=== PATIENT | male | born 2000 | race Caucasian/White ===

== ENCOUNTER 2023-07-17 12:31 | Inpatient (IN) ==
[2023-07-17] MEDS ORDERED: HYDROmorphone INJ 0.5 MG/0.5 ML SYR IV PRN (13:17)
[2023-07-17] MEDS: ONDANSETRON INJ 2 MG/ML 2 ML VIAL IV STA (13:19)
[2023-07-17] MEDS: KETOROLAC TROMETHAMINE 15 MG/ML VIAL IV STA (13:19)
[2023-07-17] MEDS: SODIUM CHLORIDE 0.9% 1,000 ML IV ONE (13:19)
--- NOTE | 2023-07-17 13:20 | Emergency Department Note ---
Impression & Plan Renal colic, Hydronephrosis, Vomiting, GONZALES (acute kidney injury) ED Provider Note NAME: ENIO JHA AGE: 23 SEX: M : 2000 ARRIVES VIA: Walk-In INFORMANT: [Patient][family] ED PROVIDER(S): [Saad Ball MD] CHIEF COMPLAINT: Kidney stone HISTORY OF PRESENT ILLNESS: The patient is a 23-year-old male who has had a week of symptoms. He was diagnosed with a right ureteral stone 4 mm in size about a week or so ago. He was at an outside hospital. The patient is using Flomax, oxycodone, hydration and a urine strainer. He has had pain persisting and now it is more so in the right groin. The pain was uncontrollable today despite his oral narcotic. He vomited a few times. He presents for evaluation. There has been no fever. He has not had cough or cold or congestion. He has had multiple stones in the past. He does not want any type of intervention if at all possible as he does poorly with stenting. PMHx/PSHx/Social Hx: See Below PHYSICAL EXAM: GENERAL: Patient is in no acute distress. HEENT: No acute trauma, normocephalic atraumatic, mucous membranes moist, no nasal congestion. NECK: No stridor, no adenopathy, no meningismus, trachea is midline. LUNGS: Clear to auscultation bilaterally, no wheeze, no rhonchi, breath sounds equal. HEART: Without murmurs gallops or rubs, regular rate and rhythm. ABDOMEN: Soft, nontender, no peritonitis. EXTREMITIES: No cyanosis, full range of motion of all the joints without pain or difficulty. NEUROLOGIC: Oriented x 3, no acute motor or sensory deficits, no focal weakness. SKIN: No jaundice, no diaphoresis. DIFFERENTIAL DIAGNOSIS: Renal colic, hydronephrosis, UTI, renal failure, failed outpatient management, electrolyte disturbance, among others. EMERGENCY DEPARTMENT PROCEDURES: MEDICAL DECISION MAKING: There is a mild leukocytosis, this could be consistent with infection or just his pain. There is a normal hemoglobin and platelet count. There is evidence for some mild acute kidney injury with a creatinine of 1.48. No electrolyte abnormality in need of emergent correction. No concerning liver enzyme elevation. No evidence for pancreatitis. Urinalysis shows some ketones and blood, no infection. KUB did not show any obvious right ureteral stone. Renal ultrasound shows hydronephrosis on the right and a stone at the right UV junction. The patient was uncomfortable. He had been vomiting earlier. He has been dealing with his stone for the last week outpatient. Patient was given IV saline, 1 L. He was given IV Zofran, IV Toradol, IV Dilaudid. He received oral Flomax. Patient does not feel safe with discharge home. With his vomiting, with his failed outpatient management, with his acute kidney injury, hospitalization is warranted. I spoke with the patient and case management, I spoke with his family, the on- call hospitalist was consulted. Prior/Outside records/notes reviewed: Outside laboratory results and CT imaging from his outside hospital. Imaging/x-ray results per my interpretation: KUB does not show any obvious ureteral stone on the right. Chronic Medical/Social conditions affecting care: College student. Care/Management discussed with: Case management, the on-call hospitalist. Level of care consideration(s): After review of the information above and other included data: --I believe the patient requires escalation of care to admission DISPOSITION: Admission Past Med/Surg History Medical History Renal colic Social History Smoking Status: Current every day smoker Feels Safe at Home: Yes Allergies Allergies Allergy/AdvReac Type Severity Reaction Status Date / Time No Known Allergies Allergy Verified 07/17/23 15:33 Home Meds Home Medications Medication Instructions Recorded Confirmed bupropion HCl 100 mg tablet,12 hr 100 mg PO DAILY 07/17/23 07/17/23 sustained-release mirtazapine 7.5 mg tablet 7.5 mg PO HS 07/17/23 07/17/23 oxycodone 5 mg tablet 5 mg PO Q6H PRN Pain 07/17/23 07/17/23 tamsulosin 0.4 mg capsule 0.4 mg PO DAILY 07/17/23 07/17/23 Results & Data (ED) Vital Signs Vital Signs - 24 hr 07/17/23 12:36 07/17/23 15:01 Temperature 37.4 C Temperature Source Temporal Artery Scan Pulse Rate 66 Pulse Rate [Right Finger] 63 Respiratory Rate 18 16 Respiratory Effort / Characteristics Non-Labored Non-Labored Spontaneous Respiratory Depth Normal Normal Respiratory Pattern Regular Blood Pressure 128/73 Blood Pressure [Right Arm] 148/66 H Blood Pressure Mean 91 Blood Pressure Mean [Right Arm] 93 Blood Pressure Position [Right Arm] Lying Pulse Oximetry 94 95 Oxygen Delivery Method Room Air Room Air Sepsis Recent Fever Within 48 Hours No Sepsis New/Unexplained Change in Mental Status No Sepsis Action Taken by Nursing No Action Required Home Medications Current Medication List: was personally reviewed by me Laboratory Data Attestation: I reviewed the patient's lab results. 07/17/23 13:13 07/17/23 13:13 Lab Results 07/17/23 07/17/23 Range/Units 13:13 13:45 WBC 11.40 H (4.8-10.8) K/ul RBC 4.80 (4.70-6.10) M/uL Hgb 14.3 (14.0-18.0) g/dl Hct 41.4 L (42.0-52.0) % MCV 86.3 (80.0-100.0) fL MCH 29.8 (25.0-34.0) pg MCHC 34.5 (32.0-36.0) g/dL RDW Std Deviation 37.7 (36.4-46.3) fL RDW Coeff of Pete 11.9 (11.5-14.5) % Plt Count 350 (130-400) K/uL MPV 10.2 (9.4-12.4) fL Immature Gran % (Auto) 0.3 % Neut % (Auto) 82.6 % Lymph % (Auto) 8.0 % L[place] % (Auto) 7.1 % Eos % (Auto) 1.6 % Baso % (Auto) 0.4 % Neut # (Auto) 9.42 H (1.40-6.50) K/uL Lymph # (Auto) 0.91 L (1.20-3.40) K/uL Loving # (Auto) 0.81 H (0.11-0.59) K/uL Eos # (Auto) 0.18 (0.00-0.50) K/uL Baso # (Auto) 0.05 (0.00-0.20) K/uL Immature Gran # (Auto) 0.03 (0.01-0.20) K/uL Sodium 136 (136-145) mmol/L Potassium 4.2 (3.5-5.1) mmol/L Chloride 103 (98-107) mmol/L Carbon Dioxide 25 (21-32) mmol/L Anion Gap 8 (3-11) BUN 15 (6-23) mg/dl Creatinine 1.48 H (0.6-1.4) mg/dl Est Cr Clr Drug Dosing 70.9 ml/min Est GFR ( Amer) 77.3 ml/min Est GFR (Non-Af Amer) 66.7 ml/min BUN/Creatinine Ratio 10.1 (10-20) Glucose 88 (70-99(Fasting)) mg/dl Calcium 9.4 (8.6-10.3) mg/dl Total Bilirubin 0.6 (0.2-1.0) mg/dl AST 21 (13-39) U/L ALT 19 (7-52) U/L Alkaline Phosphatase 75 (34-104) U/L Total Protein 7.4 (6.0-8.3) gm/dl Albumin 4.7 (3.4-5.0) gm/dl Globulin 2.7 (2.5-4.0) gm/dl Albumin/Globulin Ratio 1.7 (0.9-2) Lipase 71 (11-82) U/L Urine Color Yellow Urine Appearance Clear (Clear) Urine pH 7.0 (4.5-7.5) Ur Specific [place] 1.012 (1.000-1.030) Urine Protein Negative (Negative) Urine Glucose (UA) Negative (Negative) Urine Ketones 2+ H (Negative) Urine Blood Trace H (Negative) Urine Nitrite Negative (Negative) Urine Bilirubin Negative (Negative) Urine Urobilinogen Negative (Negative) Ur Leukocyte Esterase Negative (Negative) Urine WBC (Auto) 1-5 (0-5) /hpf Urine RBC (Auto) 0-4 (0-4) /hpf U Hyaline Cast (Auto) 0 (0-5) /lpf U Epithel Cells (Auto) 0-5 (0-5) /lpf Urine Bacteria (Auto) Negative (Negative) Administered Medications Discontinued Medications Hydromorphone HCl (Hydromorphone Inj 0.5 Mg/0.5 Ml Syr) 0.5 mg IV NOW STA Stop: 07/17/23 13:18 Last Admin: 07/17/23 14:29 Dose: 0.5 mg Documented By: GARLAND Sodium Chloride (Nss) 1,000 mls @ 999 mls/hr IV .Q1H1M ONE Stop: 07/17/23 13:59 Last Admin: 07/17/23 13:19 Dose: 999 mls/hr Documented By: BENITO Ketorolac Tromethamine (Ketorolac Tromethamine 15 Mg/Ml Vial) 15 mg IV NOW STA Stop: 07/17/23 13:00 Last Admin: 07/17/23 13:19 Dose: 15 mg Documented By: BENTIO Ondansetron HCl (Ondansetron Inj 2 Mg/Ml 2 Ml Vial) 4 mg IV NOW STA Stop: 07/17/23 13:00 Last Admin: 07/17/23 13:19 Dose: 4 mg Documented By: BENITO Imaging Data Radiologist's Impression: KUB X-Ray 07/17/23 13:17 KUB CLINICAL HISTORY: Right ureteral stone. FINDINGS: An AP supine abdominal radiograph is correlated with abdominal CT dated 09/28/2022. There is a nonobstructive abdominal bowel gas pattern. Mild/moderate fecal retention is noted throughout the colon. A punctate nonobstructing calculus projects over the left kidney. No calcifications are seen projecting over the right kidney or along the course of the ureters. The bony structures appear intact. IMPRESSION: 1. A punctate nonobstructing calculi projects over the left kidney. 2. No calcifications are seen projecting over the right kidney or along the course of the ureters. Electronically signed by: Saad Sam M.D. 07/17/2023 2:30 PM Renal Ultrasound 07/17/23 13:17 ULTRASOUND KIDNEYS AND BLADDER CLINICAL HISTORY: Right flank pain. COMPARISON STUDY: Abdominal radiograph dated 07/17/2023. Abdominal CT dated 09/28/2022. TECHNIQUE: Real-time, grayscale, and color flow sonography of the kidneys and bladder is performed. Images are reviewed in the transverse and longitudinal planes. FINDINGS: Kidneys: The kidneys are normal in size and echotexture. The right kidney measures 10.7 cm in length and the left kidney measures 10.8 cm in length. There is [id number] right-sided hydronephrosis. No hydronephrosis is seen on the left. There are small bilateral nonobstructing renal calculi which measure up to 5 mm. There is no sonographic evidence of contour deforming renal mass lesion. No perinephric fluid is identified. Bladder: The bladder is normal in appearance. An echogenic focus with twinkle artifact at the right vesicoureteral junction is consistent with an obstructing distal ureteral stone. Only the left ureteral jet was seen. IMPRESSION: 1. There is aken-[id number] right-sided hydroureteronephrosis, with an obstructing calculus seen at the right vesicoureteral junction. 2. There is no left-sided hydronephrosis. 3. Nonobstructing calculi are seen in both kidneys. 4. Only the left ureteral jet was seen. ACT 112: Negative or not required by law. Electronically signed by: Saad Sam M.D. 07/17/2023 3:45 PM Discharge Plan Visit Data Chief Complaint: Kidney Stone Stated Complaint: KIDNEY STONE ED Provider: Saad Ball Discharge Problem: Renal colic, Hydronephrosis, Vomiting, GONZALES (acute kidney injury) Patient Disposition: Admitted As Inpatient Condition: Fair Forms Stand Alone Forms: [employer] Prescriptions Prescriptions: No Action bupropion HCl 100 mg tablet sustained-release 12 hr 100 mg PO DAILY tamsulosin 0.4 mg capsule 0.4 mg PO DAILY oxycodone 5 mg tablet 5 mg PO Q6H PRN (Reason: Pain) mirtazapine 7.5 mg tablet 7.5 mg PO HS Referrals Referrals: PCP,NO [Primary Care Provider] - Discharge Problem: Hydronephrosis Qualifiers: Hydronephrosis type: with renal calculous obstruction Qualified Code(s): N13.2 - Hydronephrosis with renal and ureteral calculous obstruction Vomiting Qualifiers: Vomiting type: unspecified Nausea presence: with nausea Qualified Code(s): R 11.2 - Nausea with vomiting, unspecified
[2023-07-17 13:27] LABS: Basophils # (auto) 0.05 K/uL (0.00-0.20); Basophils % (auto) 0.4 %; Eosinophils # (auto) 0.18 K/uL (0.00-0.50); Eosinophils % (auto) 1.6 %; Hematocrit (blood only) 41.4 % (42.0-52.0); Hemoglobin 14.3 g/dl (14.0-18.0); Immature Granulocytes # (auto) 0.03 K/uL (0.01-0.20); Immature Granulocytes % (auto) 0.3 %; Lymphocytes # (auto) 0.91 K/uL (1.20-3.40); Mean Corpuscular Hemoglobin 29.8 pg (25.0-34.0); Mean Corpuscular Hgb Conc 34.5 g/dL (32.0-36.0); Mean Corpuscular Volume 86.3 fL (80.0-100.0); Mean Platelet Volume 10.2 fL (9.4-12.4); Monocytes # (auto) 0.81 K/uL (0.11-0.59); Monocytes % (auto) 7.1 %; Neutrophils # (auto) 9.42 K/uL (1.40-6.50); Neutrophils % (auto) 82.6 %; Platelet Count 350 K/uL (130-400); RDW Coefficient of Variation 11.9 % (11.5-14.5); RDW Standard Deviation 37.7 fL (36.4-46.3)
[2023-07-17 13:42] LABS: Albumin Globulin Ratio 1.7 (0.9-2); Albumin Level 4.7 gm/dl (3.4-5.0); BUN Creatinine Ratio 10.1 (10-20); Bilirubin,Total 0.6 mg/dl (0.2-1.0); Calcium 9.4 mg/dl (8.6-10.3); Creatinine Clr Calc Pharmacy 70.9 ml/min; Est GFR (African American) 77.3 ml/min; Est GFR (Non-African American) 66.7 ml/min; Globulin 2.7 gm/dl (2.5-4.0); Potassium 4.2 mmol/L (3.5-5.1); Total Protein 7.4 gm/dl (6.0-8.3)
[2023-07-17 14:04] LABS: Appearance Urine Clear (Clear); Bacteria Urine Automated Negative (Negative); Bilirubin Urine Negative (Negative); Blood Urine Trace (Negative); Cast Urine Automated 0 /lpf (0-5); Color Urine Yellow; Epithelial Cell Urine Auto 0-5 /lpf (0-5); Glucose Urine UA Negative (Negative); Ketones Urine 2+ (Negative); Leukocyte Esterase Urine Negative (Negative); Nitrite Urine Negative (Negative); Protein Urine Negative (Negative); RBC Urine Automated 0-4 /hpf (0-4); Specific Gravity Urine 1.012 (1.000-1.030); Urobilinogen Urine Negative (Negative)
[2023-07-17] MEDS: HYDROmorphone INJ 0.5 MG/0.5 ML SYR IV STA (14:29)
--- NOTE | 2023-07-17 14:32 | XRay Report ---
KUB CLINICAL HISTORY: Right ureteral stone. FINDINGS: An AP supine abdominal radiograph is correlated with abdominal CT dated 09/28/2022. There is a nonobstructive abdominal bowel gas pattern. Mild/moderate fecal retention is noted throughout the colon. A punctate nonobstructing calculus projects over the left kidney. No calcifications are seen p rojecting over the right kidney or along the course of the ureters. The bony structures appear intact . IMPRESSION: 1. A punctate nonobstructing calculi projects over the left kidney. 2. No calcifications are seen projecting over the right kidney or along the course of the ureters. Electronically signed by: Saad Sam M.D. 07/17/2023 2:30 PM
--- NOTE | 2023-07-17 15:46 | Ultrasound Report ---
ULTRASOUND KIDNEYS AND BLADDER CLINICAL HISTORY: Right flank pain. COMPARISON STUDY: Abdominal radiograph dated 07/17/2023. Abdominal CT dated 09/28/2022. TECHNIQUE: Real-time, grayscale, and color flow sonography of the kidneys and bladder is performed. I mages are reviewed in the transverse and longitudinal planes. FINDINGS: Kidneys: The kidneys are normal in size and echotexture. The right kidney measures 10.7 cm in length and the left kidney measures 10.8 cm in length. There is [id number] right-sided hydronephrosis. No hydronephrosis is seen on the left. There are small bilateral nonobstructing renal calculi which measure up to 5 mm. There is no sonographic evidence of contour deforming renal mass lesion. No perin ephric fluid is identified. Bladder: The bladder is normal in appearance. An echogenic focus with twinkle artifact at the right v esicoureteral junction is consistent with an obstructing distal ureteral stone. Only the left uretera l jet was seen. IMPRESSION: 1. There is tzhh-to-hwzgypfo right-sided hydroureteronephrosis, with an obstructing calculus seen at the right vesicoureteral junction. 2. There is no left-sided hydronephrosis. 3. Nonobstructing calculi are seen in both kidneys. 4. Only the left ureteral jet was seen. ACT 112: Negative or not required by law. Electronically signed by: Saad Sam M.D. 07/17/2023 3:45 PM
[2023-07-17] MEDS: TAMSULOSIN HCL 0.4 MG CAP PO ONE (16:25)
[2023-07-17] MEDS ORDERED: ACETAMINOPHEN 325 MG TAB PO PRN (17:09)
[2023-07-17] MEDS ORDERED: POLYETHYLENE (MIRALAX) 17 GM PACK PO PRN (17:09)
[2023-07-17] MEDS ORDERED: ALUMINUM/MAGNESIUM SUSP 30 ML UDC PO PRN (17:09)
[2023-07-17] MEDS ORDERED: MELATONIN 3 MG TAB PO PRN (17:09)
--- NOTE | 2023-07-17 17:25 | History & Physical Report ---
Date of Service July 17, 2023 Assessment & Plan (1) GONZALES (acute kidney injury): (2) Hydronephrosis: Plan Right vesicoureteral stone Right hydroureteronephrosis Admitting imagings reviewed, continue with IV fluid/nausea control/pain management/Flomax. Urology consult, await recommendation. Urine analysis negative for UTI, monitor closely off of antibiotic. Acute kidney injury: Creatinine elevated at 1.48, likely postrenal. Labs in a .m., patient on IV fluid. Other chronic medical conditions: MDD/insomnia --- > continue with/resume home meds as and when able. DVT prophylaxis: heparin subcu. Full code History of Present Illness Chief Complaint: Right flank pain Primary Care Provider: TIERRA PCP 23-year-old male with PMH of insomnia on medical marijuana and Remeron, MDD bupropion, recurrent kidney stones presented to the ED with worsening right flank pain. Patient had right flank pain about a week ago when he presented to local hospital and was noted to have 4 mm mid ureteral stone on the right side, he was offered stent placement and definitive therapy, he refused. He was discharged on Flomax and oxycodone. Patient reports suboptimal pain control, worsening right flank pain today, vomiting today. Denies fever/cough/sore throat/chills/chest pain/flulike illness. Patient does report having pain and burning sensation at the end of urinary stream. Urinalysis at presentation negative. Patient does not look septic. CVA tenderness equivocal, continue to closely monitor off of antibiotic for now. Patient reports using vape, using cigarettes occasionally. Drinks 1 to 2 times a week, about 4 drink at this time. Denies recreational drug use. Full code Medications reviewed with the patient Plan of care discussed with the patient, he voiced understanding. Student by occupation. Allergies Allergy/AdvReac Type Severity Reaction Status Date / Time No Known Allergies Allergy Verified 07/17/23 15:33 Home Medications Medication Instructions Recorded Confirmed Type bupropion HCl 100 mg tablet,12 hr 100 mg PO DAILY 07/17/23 07/17/23 History sustained-release mirtazapine 7.5 mg tablet 7.5 mg PO HS 07/17/23 07/17/23 History oxycodone 5 mg tablet 5 mg PO Q6H PRN Pain 07/17/23 07/17/23 History tamsulosin 0.4 mg capsule 0.4 mg PO DAILY 07/17/23 07/17/23 History Past Med/Surg History Medical History Renal colic Social History Smoking Status: Current every day smoker Feels Safe at Home: Yes Review of Systems Review of Systems: Negative otherwise mentioned in HPI. Physical Exam Physical Exam: GENERAL: Alert and oriented x3. NAD, on RA. HEENT: No pallor, no icterus. Pupils equal, round and reactive to light. Oral mucosa moist. NECK: No JVD, no neck masses. HEART: S1 and S2 heard. Regular rate and rhythm. No murmur, no gallop. RESPIRATORY SYSTEM: Normal AP diameter. No accessory muscle use. No wheezing, no crackles. ABDOMEN: Soft, bowel sounds present, nontender, no distention. CENTRAL NERVOUS SYSTEM: No facial droop. Speech is clear. Obeys simple commands. Moves extremities. EXTREMITIES: No edema, no erythema seen. CVA angle tenderness, no iris tenderness appreciated, pt reports minimal pain on tapping. Results & Data Results & Data Vital Signs (Past 12 Hours) Vital Signs Temp Pulse Pulse Resp BP BP Pulse Ox 07/17/23 16:21 62 18 128/81 94 07/17/23 15:01 63 16 148/66 H 95 07/17/23 12:36 37.4 C 66 18 128/73 94 O2 Del Method 07/17/23 16:21 Room Air 07/17/23 15:01 Room Air 07/17/23 12:36 Room Air (2) Hydronephrosis Hydronephrosis type: with renal calculous obstruction Qualified Code(s): N13.2 - Hydronephrosis with renal and ureteral calculous obstruction
[2023-07-17] MEDS: SODIUM CHLORIDE 0.9% 1,000 ML IV SCH (17:51)
[2023-07-17] MEDS: oxyCODONE HCL IR 5 MG TAB (IMMEDIATE RELEASE) PO PRN (19:24)
[2023-07-17] MEDS: HYDROmorphone INJ 0.5 MG/0.5 ML SYR IV PRN (21:08)
[2023-07-17] MEDS: HEPARIN SOD 5,000 UNIT/0.5 ML VIAL SQ SCH (21:09)
[2023-07-17] MEDS: MIRTAZAPINE TAB 15 MG TAB PO SCH (21:22)
[2023-07-17] MEDS: ONDANSETRON INJ 2 MG/ML 2 ML VIAL IV PRN (22:01)
[2023-07-18] MEDS: buPROPion SR 100 MG TABCR PO SCH (08:09)
[2023-07-18] MEDS: TAMSULOSIN HCL 0.4 MG CAP PO SCH (08:09)
[2023-07-18 10:07] LABS: Hematocrit (blood only) 38.8 % (42.0-52.0); Hemoglobin 13.5 g/dl (14.0-18.0); Mean Corpuscular Hemoglobin 30.6 pg (25.0-34.0); Mean Corpuscular Hgb Conc 34.8 g/dL (32.0-36.0); Mean Platelet Volume 10.2 fL (9.4-12.4); Platelet Count 318 K/uL (130-400); RDW Coefficient of Variation 11.8 % (11.5-14.5); Red Blood Count 4.41 M/uL (4.70-6.10); White Blood Count 8.21 K/ul (4.8-10.8)
[2023-07-18 10:25] LABS: BUN Creatinine Ratio 10.3 (10-20); Creatinine Clr Calc Pharmacy 83.3 ml/min; Est GFR (African American) 93.9 ml/min
--- NOTE | 2023-07-18 12:18 | Urology Consultation ---
Date of Consultation July 18, 2023 Assessment & Plan (1) Renal colic: (2) GONZALES (acute kidney injury): (3) Vomiting: (4) Hydronephrosis: Plan Patient admitted secondary to renal colic discomfort pain and flares of issues. Had been diagnosed with a ureteral stone few days ago. On repeat imaging when patient was in the ER stone was not visualized does have small punctate stones bilaterally. Patient passed stone this a.m. Stone was sent for analysis. Has been tolerating medication. Had been dealing with GONZALES and nausea. Likely with poor oral intake. Has been working through medications to control pain discomfort. Discussed extensively different options. Reviewed extensively options moving forward. As patient has passed a stone we will hold off on repeat imaging. Will likely need repeat imaging in the next 1 to 2 months to reevaluate stone burden and kidney. Will plan to continue to monitor. Patient's labs and vitals were all extensively reviewed. Is currently afebrile with temp currently 36.7. Satting 95% on room air. Is not tachycardic. Has been having otherwise normal vitals. White count is 8.2 creatinine is down to 1.26 after hydration. Hemoglobin 13.5. Patient's labs are all reviewed including patient's imaging. Reviewed interpreted by myself. Does have punctate stones of the kidney. Has history of stone disease and used to follow with a urologist in [facility]. Did discuss possible need for workup due to patient's age and multiple stones. Patient was able to pass stone today without major issue and had been measuring approximately 3 mm. Reviewed extensively options. Discussed continued hydration. Discussed expulsion therapy. Reviewed extensively issues related to stone. Discussed options moving forward. Discussed further management and monitoring including outpatient workup and assessment. Will plan to continue with observation. Follow-up in the office in a few weeks to reevaluate unless major obstruction is continued at that point would consider possible intervention patient can also follow-up with his established urologist if he chooses. Will likely need further workup and will await the analysis of the past stone. History of Present Illness Attending Physician: Brenda Ricardo MD History of Present Illness New consultation for patient with stone, discomfort, obstruction, and ill feelings. Patient developed sudden onset of pain into flank going down and radiating into groin and back in waves comes and goes. Can be severe at times. Discussed and reviewed patient's family history for any history of stone disease. Also, discussed patient's medical surgery history especially related to any history of urinary issues or stone disease. Patient has previously had stone disease and had followed with a urologist in [facility]. Patient was admitted and is undergoing observation. Allergies Allergy/AdvReac Type Severity Reaction Status Date / Time No Known Allergies Allergy Verified 07/17/23 15:33 Home Medications Medication Instructions Recorded Confirmed Type bupropion HCl 100 mg tablet,12 hr 100 mg PO DAILY 07/17/23 07/17/23 History sustained-release mirtazapine 7.5 mg tablet 7.5 mg PO HS 07/17/23 07/17/23 History tamsulosin 0.4 mg capsule 0.4 mg PO DAILY 07/17/23 07/17/23 History Patient History Medical History Renal colic Social History Smoking Status: Current every day smoker Tobacco Type: E-cigarettes / Vaping Do You Dip or Chew Tobacco: No; Hx Alcohol Use: Yes Hx Substance Use: Yes Last Used Substance: Days (ago) Substance Use Type Other:: Medical marijuana Preferred Language: Austrian Communication Ability: Effective Accounting Bookkeeper Required: No Beliefs That Will Affect Care: None Current Living Situation: Alone Feels Safe at Home: Yes Assistive Devices: None Review of Systems Review of Systems: All systems reviewed & are unremarkable except as noted in HPI & below Physical Exam Physical Exam: General: Alert and oriented x 3 in no acute distress. Patient is well nourished and well kept. HEENT: Normocephalic Atraumatic. Inspection normal. Cranial Nerves 2-12 Grossly intact. Nares are clear. Neck is supple. Normal inspection of face. Normal inspection of neck. Neurologic: No deficits on inspection. Baseline for motor function and sensory. Psychologic: Normal affect. Respiratory: Nonlabored. No use of accessory muscles. No tachypnea or dyspnea. Cardiovascular: No tachycardia Skin: [place] and Dry. No rashes or visible lesions. Extremities: Moving without issues. No motor deficits on inspection Lymphatics: No edema Abdomen: Soft Non-distended. No rebound or guarding. Results & Data Vital Signs (Past 12 Hours) Vital Signs Temp Pulse Resp BP Pulse Ox O2 Del Method 07/18/23 08:32 Room Air 07/18/23 07:42 36.7 C 62 18 106/64 95 Room Air PG Care Time/CCT Total # of Minutes Spent Total Time Spent with Patient: Total time spent is greater than 50% in coordination of care (as documented) at patient's floor/unit and/or counseling patient: Coding Level of Care Code 89539 OFFICE CONSULT LVL M Diagnoses Renal colic N23 GONZALES (acute kidney injury) N17.9 Vomiting R11.2 Nausea presence: with nausea Vomiting type: unspecified Hydronephrosis N13.2 Hydronephrosis type: with renal calculous obstruction (3) Vomiting Nausea presence: with nausea Vomiting type: unspecified Qualified Code(s): R11.2 - Nausea with vomiting, unspecified (4) Hydronephrosis Hydronephrosis type: with renal calculous obstruction Qualified Code(s): N13.2 - Hydronephrosis with renal and ureteral calculous obstruction
--- NOTE | 2023-07-18 12:52 | Discharge Summary ---
Date of Service July 18, 2023 Admission HPI Per Admitting Provider 23-year-old male with PMH of insomnia on medical marijuana and Remeron, MDD bupropion, recurrent kidney stones presented to the ED with worsening right flank pain. Patient had right flank pain about a week ago when he presented to local hospital and was noted to have 4 mm mid ureteral stone on the right side, he was offered stent placement and definitive therapy, he refused. He was discharged on Flomax and oxycodone. Patient reports suboptimal pain control, worsening right flank pain today, vomiting today. Denies fever/cough/sore throat/chills/chest pain/flulike illness. Patient does report having pain and burning sensation at the end of urinary stream. Urinalysis at presentation negative. Patient does not look septic. CVA tenderness equivocal, continue to closely monitor off of antibiotic for now. Patient reports using vape, using cigarettes occasionally. Drinks 1 to 2 times a week, about 4 drink at this time. Denies recreational drug use. Full code Medications reviewed with the patient Plan of care discussed with the patient, he voiced understanding. Student by occupation. Admission Exam Per Admitting Provider GENERAL: Alert and oriented x3. NAD, on RA. HEENT: No pallor, no icterus. Pupils equal, round and reactive to light. Oral mucosa moist. NECK: No JVD, no neck masses. HEART: S1 and S2 heard. Regular rate and rhythm. No murmur, no gallop. RESPIRATORY SYSTEM: Normal AP diameter. No accessory muscle use. No wheezing, no crackles. ABDOMEN: Soft, bowel sounds present, nontender, no distention. CENTRAL NERVOUS SYSTEM: No facial droop. Speech is clear. Obeys simple commands. Moves extremities. EXTREMITIES: No edema, no erythema seen. CVA angle tenderness, no iris tenderness appreciated, pt reports minimal pain on tapping. Principal Diagnosis Right vesicoureteral stone with right hydroureteronephrosis Renal stones Acute kidney injury Discharge Exam GENERAL: Alert and oriented x3. NAD, on RA. HEENT: No pallor, no icterus. Pupils equal, round and reactive to light. Oral mucosa moist. NECK: No JVD, no neck masses. HEART: S1 and S2 heard. Regular rate and rhythm. No murmur, no gallop. RESPIRATORY SYSTEM: Normal AP diameter. No accessory muscle use. No wheezing, no crackles. ABDOMEN: Soft, bowel sounds present, nontender, no distention. CENTRAL NERVOUS SYSTEM: No facial droop. Speech is clear. Obeys simple commands. Moves extremities. EXTREMITIES: No edema, no erythema seen. No CVA angle tender. Discharge Data Allergies Allergy/AdvReac Type Severity Reaction Status Date / Time No Known Allergies Allergy Verified 07/17/23 15:33 Consultations 07/17/23 16:49 ED Decision to Admit Stat 07/17/23 17:09 Consult Urology Routine Ordered Studies 07/17/23 13:17 US Renal Bladder [US renal/blad retro comp] Stat Hospital Course (1) GONZALES (acute kidney injury): (2) Hydronephrosis: Plan He was managed for the following: Right vesicoureteral stone Right hydroureteronephrosis Admitting imagings reviewed, continue with IV fluid/nausea control/pain management/Flomax. Discussed with urology, discharge the patient, patient to follow-up with urology. Patient passed stone today, resolution of his flank pain, stone sent for analysis. Urine analysis negative for UTI, patient with no pain or burning with passing urine. Acute kidney injury: Admitting Creatinine elevated at 1.48, likely postrenal. Status post IV fluid. Resolved. Other chronic medical conditions: MDD/insomnia --- > continue with/resume home meds as and when able. DVT prophylaxis: heparin subcu. Full code patient is being discharged home with following instruction at the point of discharge: Follow-up with your primary care physician within a week time and likely you will need labs CBC/CMP/magnesium/phosphorus. You passed the stone today, it has been sent for analysis, follow-up with urology in 1 to 2 weeks time upon discharge. Take your medications as prescribed. Please make sure that you are able to get your medications today by calling your pharmacy before you leave the hospital so that your treatment continuity is not broken. Home Health Attestation I certify that this patient is under my care and that I, or a physicians district administrative assistant working with me, had a face to-face encounter that meets the home health [id number] encounter requirements with this patient. The encounter with the patient was in whole, or in part, for the following medical condition, which is the primary reason for home health care (list medical condition): I certify that, based on my findings, the following services are medically necessary home health services: My clinical findings support the need for the above services because: Further, I certify that my clinical findings support that this patient is homebound (i.e. absences from home require considerable and taxing effort and are for medical reasons or worship services or infrequently or of short duration when for other reasons) because: Certification for Home Health Services: Based on the above findings, I certify that this patient is confined to the home and needs intermittent detention care, physical therapy and/or speech therapy or continues to need occupational therapy. The patient is under my care, and I have initiated the establishment of the plan of care. This patient will be followed by a physician who will periodically review the plan of care. Total Time Total Time Spent Total Time Spent (In Minutes): 35 Discharge Plan Discharge Items Patient Disposition: Home - Self-Care Reason For Visit: RT FLANK PAIN Discharge Diagnosis: Right vesicoureteral stone with right hydroureteronephrosis Renal stones Acute kidney injury Condition on Discharge: Fair Activity: Resume your previous activity Non-emergency contact: Primary Care Provider Call non-emergency contact if: you have any medication questions, your symptoms worsen and your temperature is above 101.5 Follow-up/Referrals: PCP,NO [Primary Care Provider] - Diet: Regular Addtl Attending Provider Instructions: Follow-up with your primary care physician within a week time and likely you will need labs CBC/CMP/magnesium/phosphorus. You passed the stone today, it has been sent for analysis, follow-up with urology in 1 to 2 weeks time upon discharge. Take your medications as prescribed. Please make sure that you are able to get your medications today by calling your pharmacy before you leave the hospital so that your treatment continuity is not broken. Pending Studies at Discharge: Yes Stand-Alone Forms: [facility] Trendrating, Smoking Cessation Medications and DC Order Prescriptions: Continued bupropion HCl 100 mg tablet sustained-release 12 hr 100 mg PO DAILY tamsulosin 0.4 mg capsule 0.4 mg PO DAILY mirtazapine 7.5 mg tablet 7.5 mg PO HS Discontinued oxycodone 5 mg tablet 5 mg PO Q6H PRN (Reason: Pain) Discharge Orders: Discharge Order (Routine); Ordered 07/18/23 Ordered By: Brenda Ricardo Admission Data Admit Date/Time: 07/17/23 17:10 Attending Provider: Brenda Ricardo Admit Provider: Brenda Ricardo Primary Care Provider: PCP,NO Other Providers: Brenda Ricardo; Ronni Nelson
[2023-07-27 16:07] LABS: Component 2 DNR; Source KIDNEY STONE
== END 2023-07-18 13:30 | disposition home or self-care (01) | DRG 694 ==
LOC: ED 12:31 → OBSVTOIN 17:10 → INTOOBSV 17:10 → 3W 17:10